=== PATIENT | female | born 1985 | race Caucasian/White ===

== ENCOUNTER 2022-07-29 11:05 | Emergency (ER) | payer OTHER ==
[~2022-07-29] VITALS: Ht 152.4 cm; Wt 88.3 kg
[~2022-07-29 11:05] MED LIST: ACETAMINOPHEN-1 EAC1 PO; BENTYL20 MG PO; COMPAZINE25 MG PR; CYMBALTA30 MG PO; DICYCLOMINE HCL10 MG PO; DILAUDID2 MG PO; HYDROCODON-ACE1 EA10 PO; OMEPRAZOLE20 MG PO; ONDANSETRON ODT4 MG SL; PEPCID20 MG PO; PERCOCET 5-3251 EACH PO; PHENERGAN50 MG RC; POTASSIUM CHLO20 ME1 PO; PRENATAL VITAM1 EACH PO; PROMETHAZINE HC25 M1 PO; PROMETHAZINE HC25 MG PR; PROMETHEGAN50 MG RC; PROTONIX40 MG PO; RANITIDINE HCL150 MG PO; REGLAN10 MG PO; REMERON15 MG PO; TYLENOL325 MG PO; ZOFRAN ODT4 MG PO; ZOFRAN ODT8 MG PO; ZOFRAN ODT8 MG SL; ZOFRAN4 MG PO
--- OUTSIDE RECORDS SUMMARY | 2022-07-29 11:12 | XMS ---
PreManage Notification: ANAMIKA MOODY Security Trim Setter Helper Events No recent Security Events currently on file CRITERIA MET - Group Notification CARE PROVIDERS There are no care providers on record at this time. Kait has no Care Guidelines for this patient. Monik VISIT COUNT (12 MO.) 1 ANITA Arechiga TOTAL 1 NOTE: Visits indicate total known visits. ED/UCC VISIT TRACKING (12 MO.) 07/29/2022 11:05 ANITA Alfonso [place] TYPE: Emergency COMPLAINT: - NAUSEA INPATIENT VISIT TRACKING (12 MO.) No inpatient visits to display in this time frame [id number]
[2022-07-29] MEDS ORDERED: DULOXETINE HCL60 MG PO (11:24)
[2022-07-29] MEDS ORDERED: REGLAN10 MG PO (14:27)
[2022-07-29] MEDS ORDERED: ONDANSETRON ODT8 MG PO (14:27)
== END 2022-07-29 14:44 | disposition home or self-care (01) ==
LOC: ED 11:05
DX: K29.00 Acute gastritis without bleeding (principal); J45.909 Unspecified asthma, uncomplicated; K21.9 Gastro-esophageal reflux disease without esophagitis; F17.200 Nicotine dependence, unspecified, uncomplicated; Z88.2 Allergy status to sulfonamides; Z88.6 Allergy status to analgesic agent; Z88.5 Allergy status to narcotic agent; Z88.8 Allergy status to other drugs, medicaments and biological substances; Z79.899 Other long term (current) drug therapy
CPT/HCPCS: 36415; 80053; 81001; 83690; 83735; 84703; 85025; 96374; 96375; 99284-25; J1790; J2405; J3010; J7030

== ENCOUNTER 2022-07-31 08:51 | Emergency (ER) | payer OTHER ==
[~2022-07-31] VITALS: Ht 152.4 cm; Wt 88.0 kg
[~2022-07-31 08:51] MED LIST changes: +DULOXETINE HCL60 MG PO; +ONDANSETRON ODT8 MG PO
--- OUTSIDE RECORDS SUMMARY | 2022-07-31 08:55 | XMS ---
PreManage Notification: ANAMIKA MOODY Security Nurses Superintendent Events No recent Security Events currently on file CRITERIA MET - [facility] - 2 Visits in 30 Days - Group Notification CARE PROVIDERS There are no care providers on record at this time. Kait has no Care Guidelines for this patient. Monik VISIT COUNT (12 MO.) 1 [facility] T[facility] NOTE: Visits indicate total known visits. [place] (12 MO.) 07/31/2022 08:[address] [facility] J[facility] [place] TYPE: Emergency COMPLAINT: - ABDOMINAL PAIN, HEART RACING, NAUSEA 07/30/2022 13:40 [facility] Mallory ORELLANA TYPE: Emergency DIAGNOSES: - chest and abdominal pain - Abdominal Pain - Unspecified abdominal pain 07/29/2022 11:[address] [facility] AARON TYPE: Emergency COMPLAINT: - NAUSEA INPATIENT VISIT TRACKING (12 MO.) No inpatient visits to display in this time frame [id number]
[2022-07-31] MEDS ORDERED: PROCHLORPERAZIN10 MG PO (10:55)
== END 2022-07-31 11:04 | disposition home or self-care (01) ==
LOC: ED 08:51
DX: R11.2 Nausea with vomiting, unspecified (principal); J45.909 Unspecified asthma, uncomplicated; K21.9 Gastro-esophageal reflux disease without esophagitis; F17.200 Nicotine dependence, unspecified, uncomplicated; Z88.8 Allergy status to other drugs, medicaments and biological substances; Z88.2 Allergy status to sulfonamides; Z88.6 Allergy status to analgesic agent; Z88.5 Allergy status to narcotic agent; Z79.899 Other long term (current) drug therapy
CPT/HCPCS: 36415; 80053; 83690; 85025; 96361; 96374; 96375; 99284-25; J1790; J2405; J3010; J7030

== ENCOUNTER 2022-11-20 09:15 | Emergency (ER) | payer OTHER ==
[~2022-11-20] VITALS: Ht 152.4 cm; Wt 88.3 kg
[~2022-11-20 09:15] MED LIST changes: +PROCHLORPERAZIN10 MG PO
--- OUTSIDE RECORDS SUMMARY | 2022-11-20 09:18 | XMS ---
PreManage Notification: ANAMIKA MOODY Security Insurance Verification Rep Events No recent Security Events currently on file CRITERIA MET - Group Notification CARE PROVIDERS There are no care providers on record at this time. Kait has no Care Guidelines for this patient. Monik VISIT COUNT (12 MO.) [address] Mallory Mike 3 ANITA Arechiga TOTAL 4 NOTE: Visits indicate total known visits. ED/C VISIT TRACKING (12 MO.) 11/20/2022 09:15 ANITA Alfonso [place] TYPE: Emergency COMPLAINT: - ABD PAIN, FLU SYMPTOMS 07/31/2022 08:52 ANITA Alfonso [place] TYPE: Emergency COMPLAINT: - ABDOMINAL PAIN, HEART RACING, NAUSEA DIAGNOSES: - Allergy status to sulfonamides - Other termination clerk (current) drug therapy - Allergy status to other drugs, medicaments and biological substances - Allergy status to analgesic agent - Unspecified asthma, uncomplicated - Nausea with vomiting, unspecified - Allergy status to narcotic agent - Gastro-esophageal reflux disease without esophagitis - Nicotine dependence, unspecified, uncomplicated 07/30/2022 13:40 [facility] Mallory ORELLANA TYPE: Emergency DIAGNOSES: - Unspecified abdominal pain - chest and abdominal pain - Abdominal Pain 07/29/2022 11:05 ANITA Alfonso [place] TYPE: Emergency COMPLAINT: - NAUSEA DIAGNOSES: - Gastro-esophageal reflux disease without esophagitis - Unspecified asthma, uncomplicated - Allergy status to narcotic agent - Allergy status to other drugs, medicaments and biological substances - Upper abdominal pain, unspecified - Allergy status to sulfonamides - Acute gastritis without bleeding - Allergy status to analgesic agent - Other termination clerk (current) drug therapy - Nicotine dependence, unspecified, uncomplicated INPATIENT VISIT TRACKING (12 MO.) No inpatient visits to display in this time frame [id number]
[2022-11-20] MEDS ORDERED: HYDROXYZINE PAM50 MG PO (10:20)
[2022-11-20] MEDS ORDERED: ESCITALOPRAM OX10 MG PO (10:20)
[2022-11-20] MEDS ORDERED: VENTOLIN HFA18 GM INH (10:20)
[2022-11-20] MEDS ORDERED: DEXTROAMP-AMPHE30 MG PO (10:21)
== END 2022-11-20 13:24 | disposition home or self-care (01) ==
LOC: ED 09:15
DX: R11.15 Cyclical vomiting syndrome unrelated to migraine (principal); J45.909 Unspecified asthma, uncomplicated; K21.9 Gastro-esophageal reflux disease without esophagitis; F17.200 Nicotine dependence, unspecified, uncomplicated; Z88.6 Allergy status to analgesic agent; Z88.2 Allergy status to sulfonamides; Z88.8 Allergy status to other drugs, medicaments and biological substances; Z88.5 Allergy status to narcotic agent; Z79.899 Other long term (current) drug therapy
CPT/HCPCS: 36415; 80053; 81001; 83690; 85025; 96374; 96376; 99284-25; J1790; J7030

== ENCOUNTER 2022-12-11 20:44 | Emergency (ER) | payer OTHER ==
[~2022-12-11] VITALS: Ht 152.4 cm; Wt 88.0 kg
[~2022-12-11 20:44] MED LIST changes: +DEXTROAMP-AMPHE30 MG PO; +ESCITALOPRAM OX10 MG PO; +HYDROXYZINE PAM50 MG PO; +VENTOLIN HFA18 GM INH
--- OUTSIDE RECORDS SUMMARY | 2022-12-11 20:49 | XMS ---
PreManage Notification: ANAMIKA MOODY Security Casino Slot Supervisor Events No recent Security Events currently on file CRITERIA MET - Group Notification - [facility] - 2 Visits in 30 Days CARE PROVIDERS -, Gisele- Dentist: Production Manager [facility] PHONE: [phone] Kait has no Care Guidelines for this patient. Monik VISIT COUNT (12 MO.) [address] [place] [address] TOTAL 5 NOTE: Visits indicate total known visits. ED/UCC VISIT TRACKING (12 MO.) 12/11/2022 20:45 ANITA Alfonso [place] TYPE: Emergency COMPLAINT: - JAW PAIN/SWELLING 11/20/2022 09:15 ANITA Alfonso [place] TYPE: Emergency COMPLAINT: - ABD PAIN, FLU SYMPTOMS DIAGNOSES: - Allergy status to analgesic agent - Unspecified abdominal pain - Unspecified asthma, uncomplicated - Allergy status to other drugs, medicaments and biological substances - Allergy status to narcotic agent - Cyclical vomiting syndrome unrelated to migraine - Gastro-esophageal reflux disease without esophagitis - Nicotine dependence, unspecified, uncomplicated - Allergy status to sulfonamides - Other tank terminal gauger (current) drug therapy 07/31/2022 08:52 ANITA Alfonso OR TYPE: Emergency COMPLAINT: - ABDOMINAL PAIN, HEART RACING, NAUSEA DIAGNOSES: - Allergy status to other drugs, medicaments and biological substances - Allergy status to analgesic agent - Unspecified asthma, uncomplicated - Nausea with vomiting, unspecified - Allergy status to narcotic agent - Gastro-esophageal reflux disease without esophagitis - Nicotine dependence, unspecified, uncomplicated - Allergy status to sulfonamides - Other tank terminal gauger (current) drug therapy 07/30/2022 13:40 [facility] Mallory ORELLANA TYPE: Emergency DIAGNOSES: - chest and abdominal pain - Abdominal Pain - Unspecified abdominal pain 07/29/2022 11:05 ANITA Torres TYPE: Emergency COMPLAINT: - NAUSEA DIAGNOSES: - Allergy status to narcotic agent - Allergy status to other drugs, medicaments and biological substances - Upper abdominal pain, unspecified - Allergy status to sulfonamides - Acute gastritis without bleeding - Allergy status to analgesic agent - Other senior living (current) drug therapy - Nicotine dependence, unspecified, uncomplicated - Gastro-esophageal reflux disease without esophagitis - Unspecified asthma, uncomplicated INPATIENT VISIT TRACKING (12 MO.) No inpatient visits to display in this time frame [id number]
[2022-12-11] MEDS ORDERED: AMOX TR-K CLV1 EAC1 PO (23:14)
[2022-12-11] MEDS ORDERED: TRAMADOL HCL50 MG PO (23:14)
== END 2022-12-11 23:32 | disposition home or self-care (01) ==
LOC: ED 20:44
DX: L03.211 Cellulitis of face (principal); J45.909 Unspecified asthma, uncomplicated; K21.9 Gastro-esophageal reflux disease without esophagitis; F17.200 Nicotine dependence, unspecified, uncomplicated; Z88.8 Allergy status to other drugs, medicaments and biological substances; Z88.2 Allergy status to sulfonamides; Z88.5 Allergy status to narcotic agent; Z88.6 Allergy status to analgesic agent; Z79.899 Other long term (current) drug therapy
CPT/HCPCS: 36415; 70110; 85025; 99283-25; A9270

== ENCOUNTER 2022-12-26 14:24 | Emergency (ER) | payer OTHER ==
[~2022-12-26] VITALS: Ht 152.4 cm; Wt 88.3 kg
[~2022-12-26 14:24] MED LIST changes: +AMOX TR-K CLV1 EAC1 PO; +TRAMADOL HCL50 MG PO
--- OUTSIDE RECORDS SUMMARY | 2022-12-26 14:39 | XMS ---
PreManage Notification: ANAMIKA MOODY Security Software Technical Lead Events No recent Security Events currently on file CRITERIA MET - [facility] - 2 Visits in 30 Days - Group Notification - PDMP - 6 ED Visits in 6 Months CARE PROVIDERS -, Gisele- Dentist: Workforce Management Manager [facility] PHONE: [phone] Kait has no Care Guidelines for this patient. Monik VISIT COUNT (12 MO.) [address] TOTAL 6 NOTE: Visits indicate total known visits. ED/UCC VISIT TRACKING (12 MO.) 12/26/2022 14:25 ANITA Alfonso OR TYPE: Emergency COMPLAINT: - VOMITING, INTERNAL PAIN 12/11/2022 20:45 ANITA Alfonso OR TYPE: Emergency COMPLAINT: - JAW PAIN/SWELLING/ NO INJURY DIAGNOSES: - Gastro-esophageal reflux disease without esophagitis - Other assisted (current) drug therapy - Nicotine dependence, unspecified, uncomplicated - Cellulitis of face - Allergy status to sulfonamides - Allergy status to other drugs, medicaments and biological substances - Allergy status to narcotic agent - Allergy status to analgesic agent - Unspecified asthma, uncomplicated 11/20/2022 09:15 ANITA Alfonso OR TYPE: Emergency COMPLAINT: - ABD PAIN, FLU SYMPTOMS DIAGNOSES: - Unspecified abdominal pain - Unspecified asthma, uncomplicated - Allergy status to other drugs, medicaments and biological substances - Allergy status to narcotic agent - Cyclical vomiting syndrome unrelated to migraine - Gastro-esophageal reflux disease without esophagitis - Nicotine dependence, unspecified, uncomplicated - Allergy status to sulfonamides - Other terminal supervisor (current) drug therapy - Allergy status to analgesic agent 07/31/2022 08:52 ANITA Torres TYPE: Emergency COMPLAINT: - ABDOMINAL PAIN, HEART RACING, NAUSEA DIAGNOSES: - Allergy status to analgesic agent - Unspecified asthma, uncomplicated - Nausea with vomiting, unspecified - Allergy status to narcotic agent - Gastro-esophageal reflux disease without esophagitis - Nicotine dependence, unspecified, uncomplicated - Allergy status to sulfonamides - Other assisted (current) drug therapy - Allergy status to other drugs, medicaments and biological substances 07/30/2022 13:40 [facility] Cee ORELLANA TYPE: Emergency DIAGNOSES: - chest and abdominal pain - Abdominal Pain - Unspecified abdominal pain 07/29/2022 11:05 ANITA Alfonso [place] TYPE: Emergency COMPLAINT: - NAUSEA DIAGNOSES: - Allergy status to other drugs, medicaments and biological substances - Upper abdominal pain, unspecified - Allergy status to sulfonamides - Acute gastritis without bleeding - Allergy status to analgesic agent - Other terminal supervisor (current) drug therapy - Nicotine dependence, unspecified, uncomplicated - Gastro-esophageal reflux disease without esophagitis - Unspecified asthma, uncomplicated - Allergy status to narcotic agent INPATIENT VISIT TRACKING (12 MO.) No inpatient visits to display in this time frame [id number]
[2022-12-26] MEDS ORDERED: PRAZOSIN HCL1 MG PO (14:59)
[2022-12-26] MEDS ORDERED: BUSPIRONE HCL10 MG PO (14:59)
[2022-12-26] MEDS ORDERED: PRILOSEC OTC20 MG PO (18:08)
[2022-12-26] MEDS ORDERED: VISTARIL25 MG PO (18:08)
== END 2022-12-26 18:22 | disposition home or self-care (01) ==
LOC: ED 14:24
DX: R10.13 Epigastric pain (principal); J45.909 Unspecified asthma, uncomplicated; K21.9 Gastro-esophageal reflux disease without esophagitis; F17.200 Nicotine dependence, unspecified, uncomplicated; Z88.8 Allergy status to other drugs, medicaments and biological substances; Z88.6 Allergy status to analgesic agent; Z88.2 Allergy status to sulfonamides; Z88.5 Allergy status to narcotic agent; Z79.899 Other long term (current) drug therapy
CPT/HCPCS: 36415; 80053; 81001; 83690; 84703; 85025; 96361; 96374; 96375; 99284-25; J1200; J1790; J2060; J2405; J7030

== ENCOUNTER 2023-02-18 13:24 | Emergency (ER) | payer OTHER ==
[~2023-02-18] VITALS: Ht 152.4 cm; Wt 88.3 kg
[~2023-02-18 13:24] MED LIST changes: +BUSPIRONE HCL10 MG PO; +PRAZOSIN HCL1 MG PO; +PRILOSEC OTC20 MG PO; +VISTARIL25 MG PO
--- OUTSIDE RECORDS SUMMARY | 2023-02-18 13:28 | XMS ---
PreManage Notification: ANAMIKA MOODY Security Big Data Solutions Architect Events No recent Security Events currently on file CRITERIA MET - PDMP - Group Notification CARE PROVIDERS -, Gisele- Dentist: Inventory Taker [facility] PHONE: [phone] Kait has no Care Guidelines for this patient. EBri VISIT COUNT (12 MO.) 1 [facility] AN[facility] Arech[facility] TOTAL 7 NOTE: Visits indicate total known visits. ED/UCC VISIT TRACKING (12 MO.) 02/18/2023 13:26 ANITA Alfonso [place] TYPE: Emergency COMPLAINT: - RT WRIST PAIN 12/26/2022 14:25 ANITA Alfonso OR TYPE: Emergency COMPLAINT: - VOMITING, INTERNAL PAIN DIAGNOSES: - Allergy status to analgesic agent - Allergy status to narcotic agent - Allergy status to other drugs, medicaments and biological substances - Allergy status to sulfonamides - Epigastric pain - Gastro-esophageal reflux disease without esophagitis - Nicotine dependence, unspecified, uncomplicated - Other long-term (current) drug therapy - Unspecified abdominal pain - Unspecified asthma, uncomplicated 12/11/2022 20:45 ANITA Alfonso OR TYPE: Emergency COMPLAINT: - JAW PAIN/SWELLING/ NO INJURY DIAGNOSES: - Allergy status to analgesic agent - Allergy status to narcotic agent - Allergy status to other drugs, medicaments and biological substances - Allergy status to sulfonamides - Cellulitis of face - Gastro-esophageal reflux disease without esophagitis - Nicotine dependence, unspecified, uncomplicated - Other supervisor intermediates (current) drug therapy - Unspecified asthma, uncomplicated 11/20/2022 09:15 ANITA Alfonso [place] TYPE: Emergency COMPLAINT: - ABD PAIN, FLU SYMPTOMS DIAGNOSES: - Allergy status to analgesic agent - Allergy status to narcotic agent - Allergy status to other drugs, medicaments and biological substances - Allergy status to sulfonamides - Cyclical vomiting syndrome unrelated to migraine - Gastro-esophageal reflux disease without esophagitis - Nicotine dependence, unspecified, uncomplicated - Other supervisor intermediates (current) drug therapy - Unspecified abdominal pain - Unspecified asthma, uncomplicated 07/31/2022 08:52 ANITA Alfonso [place] TYPE: Emergency COMPLAINT: - ABDOMINAL PAIN, HEART RACING, NAUSEA DIAGNOSES: - Allergy status to analgesic agent - Allergy status to narcotic agent - Allergy status to other drugs, medicaments and biological substances - Allergy status to sulfonamides - Gastro-esophageal reflux disease without esophagitis - Nausea with vomiting, unspecified - Nicotine dependence, unspecified, uncomplicated - Other long-term (current) drug therapy - Unspecified asthma, uncomplicated [facility] DIAGNOSES: - Unspecified abdominal pain - Abdominal Pain - chest and abdominal pain 07/29/2022 11:05 ANITA Torres TYPE: Emergency COMPLAINT: - NAUSEA DIAGNOSES: - Acute gastritis without bleeding - Allergy status to analgesic agent - Allergy status to narcotic agent - Allergy status to other drugs, medicaments and biological substances - Allergy status to sulfonamides - Gastro-esophageal reflux disease without esophagitis - Nicotine dependence, unspecified, uncomplicated - Other supervisor intermediates (current) drug therapy - Unspecified asthma, uncomplicated - Upper abdominal pain, unspecified INPATIENT VISIT TRACKING (12 MO.) No inpatient visits to display in this time frame [id number]
[2023-02-18 15:14] VITALS: BP 104/67
== END 2023-02-18 15:14 | disposition home or self-care (01) ==
LOC: ED 13:24
DX: S63.501A Unspecified sprain of right wrist, initial encounter (principal); J45.909 Unspecified asthma, uncomplicated; K21.9 Gastro-esophageal reflux disease without esophagitis; E11.9 Type 2 diabetes mellitus without complications; F17.200 Nicotine dependence, unspecified, uncomplicated; W21.89XA Striking against or struck by other sports equipment, initial encounter; Z88.2 Allergy status to sulfonamides; Z88.8 Allergy status to other drugs, medicaments and biological substances; Z88.5 Allergy status to narcotic agent; Z79.899 Other long term (current) drug therapy
CPT/HCPCS: 73130; 99283-25

== ENCOUNTER 2025-06-11 07:35 | Emergency (ER) | payer OTHER ==
[~2025-06-11] VITALS: Ht 152.4 cm; Wt 102.3 kg
[~2025-06-11 07:35] MED LIST changes: +ADDERALL 10 MG10 MG PO; +ATIVAN1 MG PO; +CIPRO500 MG PO; +ONDANSETRON HCL4 MG PO; +ONDANSETRON ODT4 MG PO
[2025-06-11 08:00] LABS: BASOPHILS 0.3 % (0.1-1.2); EOSINOPHILS 0.1 % (0.7-5.8); LYMPHOCYTES 15.2 % (19.3-51.7); MCH 32.1 PG (25.6-32.2); MCHC 35.7 g/dL (32.2-35.5); MCV 89.8 fL (79.4-94.8); MONOCYTES 6.4 % (4.7-12.5); NEUTROPHILS 77.5 % (34.0-71.1); RBC 4.61 M/uL (3.93-5.22)
[2025-06-11] MEDS ORDERED: SODIUM CHLORIDE 0.9% 1,000 ML IV PRN (08:15)
[2025-06-11 08:16] LABS: ALT (SGPT) 30.0 U/L (14-59); AST (SGOT) 18.0 U/L (15-37); GLOMERULAR FILTRATION RATE,EST 43.0 mL/min (>60); PROTEIN, TOTAL 8.5 g/dL (6.4-8.2); UREA NITROGEN 11.0 mg/dL (7-18)
--- OUTSIDE RECORDS SUMMARY | 2025-06-11 08:37 | XMS ---
PreManage Notification: ANAMIKA MOODY Security Human Resources Operations Specialist Events No recent Security Events currently on file CRITERIA MET - Group Notification - [facility] - 2 Visits in 30 Days CARE PROVIDERS -, [facility] Dentist: Teacher Education Instructor [facility] PHONE: [phone] -Gisele- Dentist: Teacher Education Instructor [facility] PHONE: [phone] [facility] PHONE: [phone] Kait has no Care Guidelines for this patient. E.D. VISIT COUNT (12 MO.) 2 ANITA Arechiga TOTAL 2 NOTE: Visits indicate total known visits. ED/UCC VISIT TRACKING (12 MO.) 06/11/2025 07:35 ANITA Alfonso OR TYPE: Emergency COMPLAINT: - VOMITING 05/31/2025 13:59 ANITA Alfonso OR TYPE: Emergency COMPLAINT: - LT FOOT INJURY DIAGNOSES: - Allergy status to analgesic agent - Allergy status to narcotic agent - Allergy status to other drugs, medicaments and biological substances - Allergy status to sulfonamides - Contusion of left foot, initial encounter - Exposure to other specified factors, initial encounter - Nicotine dependence, unspecified, uncomplicated - Other longterm (current) drug therapy - Pain in left foot - Type 2 diabetes mellitus without complications - Unspecified asthma, uncomplicated INPATIENT VISIT TRACKING (12 MO.) No inpatient visits to display in this time frame [id number]
[2025-06-11 08:58] LABS: CORONAVIRUS COVID-19 AG NEGATIVE (NEGATIVE)
[2025-06-11] MEDS ORDERED: D5%-NACL 0.9% 20 KCL 1,000 ML IV SCH (09:15)
[2025-06-11] MEDS ORDERED: POTASSIUM CHLORIDE 20 MEQ in DEXTROSE 5% 250 ML IV ONE (09:30)
[2025-06-11] MEDS ORDERED: POTASSIUM CHLORIDE 10 MEQ TABCR PO ONE (10:45)
[2025-06-11] MEDS ORDERED: PROCHLORPERAZINE EDISYLATE 10 MG/2 ML VIAL IV ONE (11:00)
[2025-06-11] MEDS ORDERED: ONDANSETRON ODT4 MG PO (11:31)
[2025-06-11 11:52] LABS: BLOOD/HGB, URINE TRACE-L (Negative); KETONE, URINE NEGATIVE (Negative); LEUK ESTERASE, URINE NEGATIVE (negative); NITRITE, URINE NEGATIVE (negative)
[2025-06-11 12:03] LABS: BACTERIA, URINE NONE SEEN /hpf (negative); CASTS, URINE HYALINE 2+ \\lpf; CRYSTALS, URINE AMORPHOUS PHOSPH 4+ (0-1+); EPITHELIAL CELLS, URINE SQUAMOUS 1+ /lpf (0-1+)
[2025-06-11 12:04] LABS: REFLEX CULTURE, URINE No (No)
[2025-06-11 12:40] VITALS: BP 139/93
== END 2025-06-11 12:40 | disposition home or self-care (01) ==
LOC: ED 07:35
PROVIDERS: Emergency Medicine
DX: R11.2 Nausea with vomiting, unspecified (principal); E87.6 Hypokalemia; J45.909 Unspecified asthma, uncomplicated; K21.9 Gastro-esophageal reflux disease without esophagitis; F17.200 Nicotine dependence, unspecified, uncomplicated; Z88.2 Allergy status to sulfonamides; Z88.6 Allergy status to analgesic agent; Z88.5 Allergy status to narcotic agent; Z88.8 Allergy status to other drugs, medicaments and biological substances; Z79.899 Other long term (current) drug therapy
CPT/HCPCS: 36415; 80053; 81001; 83690; 85025; 96361; 96365; 96366; 96375; 99284-25; A9270; J0780; J1200; J1790; J2405; J3480; J7030; J7060